=== PATIENT | female | born 1980 | race Caucasian/White ===

== ENCOUNTER 2016-09-27 07:34 | Emergency (ER) | payer OTHER ==
[2016-09-27] MEDS ORDERED: SODIUM CHLORIDE 0.9% 500 ML IV STA (08:26)
[2016-09-27] MEDS ORDERED: ONDANSETRON 4 MG/2 ML VIAL IVP STA (08:26)
[2016-09-27] MEDS ORDERED: SODIUM CHLORIDE 0.9% 1,000 ML IV STA ×2 (08:26)
[2016-09-27] MEDS ORDERED: FAMOTIDINE 20 MG/2 ML VIAL IV STA (08:26)
[2016-09-27] MEDS ORDERED: DICYCLOMINE 10 MG/ML 2 ML AMP IM STA (08:32)
--- NOTE | 2016-09-27 08:33 | ED ---
General Adult HPI - General Chief complaint: Nausea/Vomiting/Diarrhea Stated complaint: FLU SYMPTOMS, HEART RACING, JAW PAIN, VOMITING Time Seen by Provider: 09/27/16 08:08 Source: patient, RN notes reviewed Mode of arrival: ambulatory Limitations: no limitations - History of Present Illness Initial comments: Patient's 35-year-old female who presents emergency room today with a chief complaint of symptoms of nausea vomiting diarrhea over the last 4 days. Patient does admit to multiple episodes. Does admit to cramping pain in the abdomen. Patient does admit that she has small flakes of blood in the emesis. Patient does admit that she's currently on her menstrual cycle. She denies any signs of blood in the stool. She denies any other complaints or symptoms at this time. Patient denies any recent fever, chills, shortness of breath, chest pain, back pain, numbness or tingling, dysuria or hematuria, constipation, headaches or visual changes, or any other complaints. - Related Data Home Medications Medication Instructions Recorded Confirmed Ibuprofen [Motrin] 600 mg PO Q6HR PRN 09/27/16 09/27/16 Previous Rx's Medication Instructions Recorded Dicyclomine [Bentyl] 20 mg PO QID #20 tablet 09/27/16 Ondansetron Odt [Zofran ODT] 4 mg PO Q8HR PRN #20 tab 09/27/16 Allergies Allergy/AdvReac Type Severity Reaction Status Date / Time tramadol HCl [From Ultram] Allergy Swelling Verified 09/27/16 08:16 levofloxacin [From Levaquin] AdvReac Rapid Verified 09/27/16 08:16 Heart Rate Review of Systems ROS Statement: Those systems with pertinent positive or pertinent negative responses have been documented in the HPI. ROS Other: All systems not noted in ROS Statement are negative. Past Medical History Past Medical History: No Reported History History of Any Multi-Drug Resistant Organisms: None Reported Past Surgical History: Cholecystectomy Additional Past Surgical History / Comment(s): sinus surgery Past Psychological History: No Psychological Hx Reported Smoking Status: Current every day smoker Past Alcohol Use History: None Reported Past Drug Use History: None Reported General Exam - General Exam Comments Initial Comments: General: The patient is awake and alert, in no distress, and does not appear acutely ill. Eye: Pupils are equal, round and reactive to light, extra-ocular movements are intact. No nystagmus. There is normal conjunctiva bilaterally. No signs of icterus. Ears, nose, mouth and throat: There are moist mucous membranes and no oral lesions. Neck: The neck is supple, there is no tenderness or JVD. Cardiovascular: Tachycardic. No murmur, rub or gallop is appreciated. Respiratory: Lungs are clear to auscultation, respirations are non-labored, breath sounds are equal. No wheezes, stridor, rales, or rhonchi. Gastrointestinal: Soft, non-distended, non-tender abdomen without masses or organomegaly noted. There is no rebound or guarding present. No CVA tenderness. Bowel sounds are unremarkable. Musculoskeletal: Normal ROM, no tenderness. Strength 5/5. Sensation intact. Pulses equal bilaterally 2+. Neurological: A&O x 3. CN II-XII intact, There are no obvious motor or sensory deficits. Coordination appears grossly intact. Speech is normal. Skin: Skin is warm and dry and no rashes or lesions are noted. Psychiatric: Cooperative, appropriate mood & affect, normal judgment. Limitations: no limitations Course Vital Signs 09/27/16 07:53 Temperature 98.6 F Pulse Rate 144 H Respiratory 20 Rate Blood Pressure 118/86 O2 Sat by Pulse 98 Oximetry EKG Findings - EKG Comments: EKG Findings:: EKG performed at 0803: Shows sinus tachycardia 126 beats per minute. SC interval 124. QRS 64. QT/QTC 318/460. No acute ST changes. Medical Decision Making - Medical Decision Making Patient reexamined at this time shows no signs of distress. Patient's abdomen soft nontender. Patient's heart rate currently 100 bpm. Patient feeling better after medications. Patient's heart rate improved after fluids here in the emergency room. She admits she is feeling much better at this time is comfortable being discharged home. Her labs been reviewed blood work is unremarkable. Patient's urinalysis shows large amount of blood she is currently on her menstrual cycle. There is 24 white cells. This is felt to not be an infection at this time as patient is asymptomatic. Culture is pending. Patient will be discharged home with nausea medication and Bentyl for her symptoms. She is advised follow-up the family doctor. Advised return here to the emergency room if any symptoms increase or worsen or for any other concerns. Patient states understanding and is in agreement with this plan. - Lab Data Result diagrams: 09/27/16 08:29 09/27/16 08:29 Lab Results 09/27/16 09/27/16 09/27/16 Range/Units 08:29 08:29 08:29 WBC 10.5 (3.8-10.6) k/uL RBC 5.05 (3.80-5.40) m/uL Hgb 16.8 H (11.4-16.0) gm/dL Hct 51.7 H (34.0-46.0) % MCV 102.3 H (80.0-100.0) fL MCH 33.3 (25.0-35.0) pg MCHC 32.6 (31.0-37.0) g/dL RDW 13.2 (11.5-15.5) % Plt Count 249 (150-450) k/uL Neutrophils % 85 % Lymphocytes % 11 % Monocytes % 3 % Eosinophils % 0 % Basophils % 0 % Neutrophils # 8.9 H (1.3-7.7) k/uL Lymphocytes # 1.1 (1.0-4.8) k/uL Monocytes # 0.3 (0-1.0) k/uL Eosinophils # 0.0 (0-0.7) k/uL Basophils # 0.1 (0-0.2) k/uL Macrocytosis Slight PT (9.0-12.0) sec INR (<1.1) APTT (22.0-30.0) sec Sodium 145 (137-145) mmol/L Potassium 4.3 (3.5-5.1) mmol/L Chloride 107 (98-107) mmol/L Carbon Dioxide 23 (22-30) mmol/L Anion Gap 15 mmol/L BUN 15 (7-17) mg/dL Creatinine 0.58 (0.52-1.04) mg/dL Est GFR (MDRD) Af Amer >60 (>60 ml/min/1.73 sqM) Est GFR (MDRD) Non-Af >60 (>60 ml/min/1.73 sqM) Glucose 96 (74-99) mg/dL Calcium 10.0 (8.4-10.2) mg/dL Total Bilirubin 0.8 (0.2-1.3) mg/dL AST 32 (14-36) U/L ALT 46 (9-52) U/L Alkaline Phosphatase 89 (38-126) U/L Troponin I (0.000-0.034) ng/mL Total Protein 7.9 (6.3-8.2) g/dL Albumin 4.8 (3.5-5.0) g/dL Amylase 68 (30-110) U/L Lipase 51 (23-300) U/L Urine Color Urine Appearance (Clear) Urine pH (5.0-8.0) Ur Specific [place] (1.001-1.035) Urine Protein (Negative) Urine Glucose (UA) (Negative) Urine Ketones (Negative) Urine Blood (Negative) Urine Nitrite (Negative) Urine Bilirubin (Negative) Urine Urobilinogen (<2.0) mg/dL Ur Leukocyte Esterase (Negative) Urine RBC (0-5) /hpf Urine WBC (0-5) /hpf Ur Squamous Epith Cells (0-4) /hpf Urine Mucus (None) /hpf Urine HCG, Qual Not Detected (Not Detectd) 09/27/16 09/27/16 09/27/16 Range/Units 08:29 08:29 08:29 WBC (3.8-10.6) k/uL RBC (3.80-5.40) m/uL Hgb (11.4-16.0) gm/dL Hct (34.0-46.0) % MCV (80.0-100.0) fL MCH (25.0-35.0) pg MCHC (31.0-37.0) g/dL RDW (11.5-15.5) % Plt Count (150-450) k/uL Neutrophils % % Lymphocytes % % Monocytes % % Eosinophils % % Basophils % % Neutrophils # (1.3-7.7) k/uL Lymphocytes # (1.0-4.8) k/uL Monocytes # (0-1.0) k/uL Eosinophils # (0-0.7) k/uL Basophils # (0-0.2) k/uL Macrocytosis PT 10.6 (9.0-12.0) sec INR 1.1 (<1.1) APTT 25.0 (22.0-30.0) sec Sodium (137-145) mmol/L Potassium (3.5-5.1) mmol/L Chloride (98-107) mmol/L Carbon Dioxide (22-30) mmol/L Anion Gap mmol/L BUN (7-17) mg/dL Creatinine (0.52-1.04) mg/dL Est GFR (MDRD) Af Amer (>60 ml/min/1.73 sqM) Est GFR (MDRD) Non-Af (>60 ml/min/1.73 sqM) Glucose (74-99) mg/dL Calcium (8.4-10.2) mg/dL Total Bilirubin (0.2-1.3) mg/dL AST (14-36) U/L ALT (9-52) U/L Alkaline Phosphatase (38-126) U/L Troponin I <0.012 (0.000-0.034) ng/mL Total Protein (6.3-8.2) g/dL Albumin (3.5-5.0) g/dL Amylase (30-110) U/L Lipase (23-300) U/L Urine Color Light Red Urine Appearance Cloudy H (Clear) Urine pH 6.5 (5.0-8.0) Ur Specific [place] 1.018 (1.001-1.035) Urine Protein 2+ H (Negative) Urine Glucose (UA) Negative (Negative) Urine Ketones Trace H (Negative) Urine Blood Large H (Negative) Urine Nitrite Negative (Negative) Urine Bilirubin Negative (Negative) Urine Urobilinogen <2.0 (<2.0) mg/dL Ur Leukocyte Esterase Moderate H (Negative) Urine RBC >182 H (0-5) /hpf Urine WBC 24 H (0-5) /hpf Ur Squamous Epith Cells 9 H (0-4) /hpf Urine Mucus Many H (None) /hpf Urine HCG, Qual (Not Detectd) Disposition Clinical Impression: Nausea vomiting and diarrhea Disposition: HOME SELF-CARE Condition: Good Instructions: Gastroenteritis (ED) Additional Instructions: Please use medication as discussed. Please follow-up with family doctor in the next 2 days of symptoms have not improved. Please return to emergency room if the symptoms increase or worsen or for any other concerns. Prescriptions: Dicyclomine [Bentyl] 20 mg PO QID #20 tablet Ondansetron Odt [Zofran ODT] 4 mg PO Q8HR PRN #20 tab PRN Reason: Nausea Time of Disposition: 10:13
[2016-09-27 08:43] LABS: Basophils # (A) 0.1 k/uL (0-0.2); Basophils % (A) 0 %; CH 34.4; CHCM 33.8; Eosinophils % (A) 0 %; HCT 51.7 % (34.0-46.0); HGB 16.8 gm/dL (11.4-16.0); Luc # (Auto) 0.09; Luc % (Auto) 1; Lymphocytes # (A) 1.1 k/uL (1.0-4.8); Lymphocytes % (A) 11 %; MCH 33.3 pg (25.0-35.0); MCHC 32.6 g/dL (31.0-37.0); MCV 102.3 fL (80.0-100.0); Macrocytosis Slight; Mean Platelet Volume 7.2; Monocytes # (A) 0.3 k/uL (0-1.0); Monocytes % (A) 3 %; Neutrophils # (A) 8.9 k/uL (1.3-7.7); Neutrophils % (A) 85 %; RBC 5.05 m/uL (3.80-5.40); RDW 13.2 % (11.5-15.5); WBC 10.5 k/uL (3.8-10.6); WBC (Perox) 10.46
[2016-09-27 08:49] LABS: Appearance,Urine Cloudy (Clear); Bilirubin,Urine Negative (Negative); Glucose,Urine (UA) Negative (Negative); Ketones,Urine Trace (Negative); Leukocyte Esterase,Urine Moderate (Negative); Mucus,Urine Many /hpf; Nitrite,Urine Negative (Negative); PH, Urine 6.5 (5.0-8.0); Particle Count 16820; Protein,Urine 2+ (Negative); RBC,Urine >182 /hpf (0-5); Specific Gravity,Urine 1.018 (1.001-1.035); Squamous Epithelial Cell,Urine 9 /hpf (0-4); UA Billing (MACRO vs. MICRO) MICRO; Urobilinogen,Urine <2.0 mg/dL (<2.0); WBC,Urine 24 /hpf (0-5)
[2016-09-27 08:54] LABS: INR 1.1 (<1.1); Prothrombin Time 10.6 sec (9.0-12.0)
[2016-09-27 08:55] LABS: ALT 46 U/L (9-52); AST 32 U/L (14-36); Alkaline Phosphatase 89 U/L (38-126); Amylase 68 U/L (30-110); Anion Gap 15 mmol/L; Blood Urea Nitrogen 15 mg/dL (7-17); Carbon Dioxide 23 mmol/L (22-30); Chloride 107 mmol/L (98-107); Glucose 96 mg/dL (74-99); Non-African American GFR(MDRD) >60 (>60 ml/min/1.73 sqM); Potassium 4.3 mmol/L (3.5-5.1); Sodium 145 mmol/L (137-145); Total Bilirubin 0.8 mg/dL (0.2-1.3); Total Protein 7.9 g/dL (6.3-8.2)
--- NOTE | 2016-09-27 10:00 | XR ---
EXAMINATION TYPE: XR KUB DATE OF EXAM: 09/27/2016 9:56 AM COMPARISON: NONE INDICATION: Pain TECHNIQUE: Single view abdomen upright view FINDINGS: There is a normal bowel gas pattern. Psoas margins are normal. No organomegaly is present. Post cholecystectomy clips are present. Right kidney may be somewhat malpositioned slightly lower faith n expected. IMPRESSION: 1. Unremarkable Abdomen
--- NOTE | 2016-09-27 10:01 | XR ---
EXAMINATION TYPE: XR chest 2V DATE OF EXAM: 09/27/2016 9:56 AM COMPARISON: 01/02/2014 INDICATION: Vomiting, flulike symptoms TECHNIQUE: Single frontal view of the chest is obtained. FINDINGS: The heart size is normal. The pulmonary vasculature is normal. The lungs are clear. IMPRESSION: 1. No acute pulmonary process.
[2016-09-27 10:16] VITALS: BP 108/68; PULSE 87; RESP 18; TEMP 98.2
== END 2016-09-27 10:31 | disposition home or self-care (01) ==
LOC: EC 07:34
DX: R11.2 Nausea with vomiting, unspecified (principal); R19.7 Diarrhea, unspecified; R00.0 Tachycardia, unspecified; R10.9 Unspecified abdominal pain; F17.200 Nicotine dependence, unspecified, uncomplicated; Z90.49 Acquired absence of other specified parts of digestive tract; Z88.1 Allergy status to other antibiotic agents; Z88.5 Allergy status to narcotic agent
CPT/HCPCS: 99284 ×2; 96374 ×2; 96375 ×2; 96361 ×3; 96372 ×2; 36415; 80053; 82150; 83690; 84484; 85025; 85610; 85730; 81001; 81025; 87086; 71020; 74000; J0500; J2405; 93005

== ENCOUNTER 2017-02-18 06:19 | Inpatient (IN) | payer MEDICAID, OTHER ==
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
[2017-02-18] MEDS ORDERED: NICOTINE 21MG/24HR PATCH TRANSDERM STA (12:20)
[2017-02-18] MEDS ORDERED: MAG HYDROX/AL HYDROX/SIMETH 30 ML CUP PO PRN (13:18)
[2017-02-18] MEDS ORDERED: MAGNESIUM HYDROXIDE 2,400 MG/10 ML CUP PO PRN (13:18)
[2017-02-18] MEDS ORDERED: PNEUMOCOCCAL VACC-PNEUMOVAX 23 25 MCG/0.5 ML VIAL IM ONE (14:11)
[2017-02-18] MEDS: IBUPROFEN 600 MG TAB PO PRN (15:30)
[2017-02-18] MEDS: LORazepam 1 MG TAB PO PRN ×2 (15:31→21:08)
[2017-02-18 17:22] LABS: Appearance,Urine Cloudy (Clear); Bacteria,Urine Few /hpf; Bilirubin,Urine Negative (Negative); Glucose,Urine (UA) Negative (Negative); Ketones,Urine Negative (Negative); Leukocyte Esterase,Urine Negative (Negative); Mucus,Urine Occasional /hpf; Nitrite,Urine Negative (Negative); PH, Urine 6.5 (5.0-8.0); Particle Count 7461; Protein,Urine Trace (Negative); RBC,Urine 1 /hpf (0-5); Specific Gravity,Urine 1.004 (1.001-1.035); Squamous Epithelial Cell,Urine 8 /hpf (0-4); UA Billing (MACRO vs. MICRO) MICRO; Urobilinogen,Urine <2.0 mg/dL (<2.0); WBC,Urine 3 /hpf (0-5)
[2017-02-18] MEDS: ACETAMINOPHEN TAB 325 MG TAB PO PRN (21:08)
[2017-02-19] MEDS: LORazepam 1 MG TAB PO PRN ×3 (06:13→21:08)
[2017-02-19] MEDS: IBUPROFEN 600 MG TAB PO PRN ×2 (06:13→21:08)
[2017-02-19] MEDS: NICOTINE 21MG/24HR PATCH TRANSDERM SCH (08:32)
[2017-02-19 09:30] LABS: Basophils % (A) 0 %; CHCM 35.5; Eosinophils # (A) 0.1 k/uL (0-0.7); Eosinophils % (A) 1 %; HCT 45.2 % (34.0-46.0); HDW 2.26; HGB 15.3 gm/dL (11.4-16.0); Luc # (Auto) 0.15; Luc % (Auto) 1; Lymphocytes # (A) 1.8 k/uL (1.0-4.8); Lymphocytes % (A) 13 %; MCH 33.4 pg (25.0-35.0); MCHC 33.7 g/dL (31.0-37.0); Mean Platelet Volume 8.2; Monocytes # (A) 0.5 k/uL (0-1.0); Monocytes % (A) 3 %; Neutrophils # (A) 11.6 k/uL (1.3-7.7); Neutrophils % (A) 82 %; RBC 4.57 m/uL (3.80-5.40); RDW 12.7 % (11.5-15.5); WBC 14.2 k/uL (3.8-10.6); WBC (Perox) 13.77
[2017-02-19 09:43] LABS: ALT 37 U/L (9-52); AST 21 U/L (14-36); Alkaline Phosphatase 93 U/L (38-126); Blood Urea Nitrogen 12 mg/dL (7-17); Calcium 9.7 mg/dL (8.4-10.2); Chloride 100 mmol/L (98-107); Glucose 92 mg/dL (74-99); Non-African American GFR(MDRD) >60 (>60 ml/min/1.73 sqM); Potassium 3.9 mmol/L (3.5-5.1); Sodium 137 mmol/L (137-145); Total Bilirubin 0.4 mg/dL (0.2-1.3); Total Protein 6.9 g/dL (6.3-8.2)
[2017-02-19 10:41] LABS: Anion Gap 15 mmol/L; Carbon Dioxide 22 mmol/L (22-30)
[2017-02-19] MEDS: ACETAMINOPHEN TAB 325 MG TAB PO PRN (13:32)
[2017-02-19 14:12] VITALS: BMI 20.5
[2017-02-19 17:13] LABS: Appearance,Urine Clear (Clear); Bilirubin,Urine Negative (Negative); Glucose,Urine (UA) Negative (Negative); Ketones,Urine Negative (Negative); Leukocyte Esterase,Urine Negative (Negative); Nitrite,Urine Negative (Negative); PH, Urine 6.5 (5.0-8.0); Protein,Urine Negative (Negative); Specific Gravity,Urine 1.008 (1.001-1.035); UA Billing (MACRO vs. MICRO) CHEM; Urobilinogen,Urine <2.0 mg/dL (<2.0)
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
[2017-02-20] MEDS: IBUPROFEN 600 MG TAB PO PRN (06:53)
[2017-02-20] MEDS: LORazepam 1 MG TAB PO PRN ×2 (06:53→13:36)
[2017-02-20 06:58] VITALS: BP 93/55; PULSE 84; RESP 16; TEMP 98.1
[2017-02-20] MEDS: NICOTINE 21MG/24HR PATCH TRANSDERM SCH (08:34)
[2017-02-20 10:19] LABS: Cholesterol 107 mg/dL (<200); HDL Cholesterol 46 mg/dL (40-60)
[2017-02-20 12:20] LABS: Hemoglobin A1C 4.8 % (4.2-6.1)
[2017-02-20] MEDS: ACETAMINOPHEN TAB 325 MG TAB PO PRN (13:36)
--- NOTE | 2017-02-20 14:01 | P.DS ---
Providers Date of admission: 02/18/17 13:02 Expected date of discharge: 02/20/17 Attending physician: Lamin Garcia, DO Consults: 02/18/17 13:18 Consult Physician Routine Consulting Provider: Fabien Johnson Consult Reason/Comments: H and P and medical management Do you want consulting provider notified?: Yes Primary care physician: Fabien Johnson - Discharge Diagnosis(es) (1) Major depressive disorder, recurrent severe without psychotic features Discharge Summary (02/20/2017): Patient was admitted after having suicidal thoughts as noted below due to marital conflict and upcoming divorce. During hospital course patient was compliant with medication therapy. She attended all group and recreation activities. She did not require emergency medication. Patient reports tolerating Seroquel XR well last night and had the "best sleep" she has had in many years. She reports sleeping all through the night with no awakenings. She states she felt mild drowsiness this morning that resolved after she got up and became active and she states it was significantly less impairing than OTC Tylenol PM when used for sleep. Patient is much brighter and vibrant today. She reports having a conversation with her that went well yesterday and hopes to reconcile their disagreements. At time of discharge, patient denies SI/ HI/AVH. contacted and per SW agreeable to plan for patient to discharge home. 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 H&P (02/19/2017): Patient is a 36-year-old female who presented to the emergency room with chief complaint of suicidal thoughts that started 4 days prior. Patient's plan to kill herself by drowning. The precipitating factor for this event as the patient is currently going through divorce and struggling with her soon-to- be ex-. Patient states that she does not want a divorce. Patient is vague on the reason for the divorce, but after prompting reports that her is upset with her because of her past drug history and difficulty struggling with addiction to opiates and benzodiazepines. Patient reports becoming sedated to go off struggling with difficulties during his sinus surgery to multiple different attempts to correct. This was confirmed by her reports that he and patient's family have seizures multiple interventions to try to get patient off was set drugs with little success. Patient reports a past history of trying multiple different antidepressants with no success. She reports feeling jittery or increased anxiety with various SSRIs and SNRIs. She denies any past suicide attempts or history of psychiatric hospitalizations. She denies access to firearms or stashes medication. After reviewed various treatment options, patient is agreeable to trial of Seroquel XR monotherapy. MENTAL STATUS EXAM Appearance: alert, well groomed, appears stated age, steady gait Behavior: no psychomotor agitation or psychomotor retardation, fair eye contact Attitude: cooperative Speech: normal rate, rhythm, fluency, articulation; and prosody; primary language: Irish Mood: brighter Affect: congruent, with mood , full range Thought processes: linear, organized Thought content: patient does not appear to be responding to internal stimuli; patient denies auditory and visual hallucinations, no delusions and is not exhibiting in overt signs of psychosis, denies SI/HI Insight: fair Judgment: good Cognitive: oriented to all 4 spheres, normal intelligence Strengths/Weakness: family support/low self esteem Vital Signs Temp 98.1 F 02/20/17 06:57 Pulse 84 02/20/17 06:57 Resp 16 02/20/17 06:57 BP 93/55 02/20/17 06:57 Pulse Ox 99 02/18/17 13:24 Intake & Output 02/19/17 02/20/17 02/20/17 18:59 06:59 18:59 Weight 57.606 kg Laboratory Results WBC 14.2 k/uL (3.8-10.6) H 02/19/17 08:41 RBC 4.57 m/uL (3.80-5.40) 02/19/17 08:41 Hgb 15.3 gm/dL (11.4-16.0) 02/19/17 08:41 Hct 45.2 % (34.0-46.0) 02/19/17 08:41 MCV 99.0 fL (80.0-100.0) 02/19/17 08:41 MCH 33.4 pg (25.0-35.0) 02/19/17 08:41 MCHC 33.7 g/dL (31.0-37.0) 02/19/17 08:41 RDW 12.7 % (11.5-15.5) 02/19/17 08:41 Plt Count 234 k/uL (150-450) 02/19/17 08:41 Neutrophils % 82 % 02/19/17 08:41 Lymphocytes % 13 % 02/19/17 08:41 Monocytes % 3 % 02/19/17 08:41 Eosinophils % 1 % 02/19/17 08:41 Basophils % 0 % 02/19/17 08:41 Neutrophils # 11.6 k/uL (1.3-7.7) H 02/19/17 08:41 Lymphocytes # 1.8 k/uL (1.0-4.8) 02/19/17 08:41 Monocytes # 0.5 k/uL (0-1.0) 02/19/17 08:41 Eosinophils # 0.1 k/uL (0-0.7) 02/19/17 08:41 Basophils # 0.0 k/uL (0-0.2) 02/19/17 08:41 Sodium 137 mmol/L (137-145) 02/19/17 08:41 Potassium 3.9 mmol/L (3.5-5.1) 02/19/17 08:41 Chloride 100 mmol/L (98-107) 02/19/17 08:41 Carbon Dioxide 22 mmol/L (22-30) 02/19/17 08:41 Anion Gap 15 mmol/L 02/19/17 08:41 BUN 12 mg/dL (7-17) 02/19/17 08:41 Creatinine 0.72 mg/dL (0.52-1.04) 02/19/17 08:41 Est GFR (MDRD) Af Amer >60 (>60 ml/min/1.73 sqM) 02/19/17 08:41 Est GFR (MDRD) Non-Af >60 (>60 ml/min/1.73 sqM) 02/19/17 08:41 Glucose 92 mg/dL (74-99) 02/19/17 08:41 Calcium 9.7 mg/dL (8.4-10.2) 02/19/17 08:41 Total Bilirubin 0.4 mg/dL (0.2-1.3) 02/19/17 08:41 AST 21 U/L (14-36) 02/19/17 08:41 ALT 37 U/L (9-52) 02/19/17 08:41 Alkaline Phosphatase 93 U/L (38-126) 02/19/17 08:41 Total Protein 6.9 g/dL (6.3-8.2) 02/19/17 08:41 Albumin 4.3 g/dL (3.5-5.0) 02/19/17 08:41 Triglycerides 122 mg/dL (<150) 02/19/17 08:41 Cholesterol 107 mg/dL (<200) 02/19/17 08:41 LDL Cholesterol, Calc 37 mg/dL (0-99) 02/19/17 08:41 HDL Cholesterol 46 mg/dL (40-60) 02/19/17 08:41 TSH 0.788 mIU/L (0.465-4.680) 02/19/17 08:41 Urine Color Yellow 02/19/17 17:07 Urine Appearance Clear (Clear) 02/19/17 17:07 Urine pH 6.5 (5.0-8.0) 02/19/17 17:07 Ur Specific Elliott 1.008 (1.001-1.035) 02/19/17 17:07 Urine Protein Negative (Negative) 02/19/17 17:07 Urine Glucose (UA) Negative (Negative) 02/19/17 17:07 Urine Ketones Negative (Negative) 02/19/17 17:07 Urine Blood Negative (Negative) 02/19/17 17:07 Urine Nitrite Negative (Negative) 02/19/17 17:07 Urine Bilirubin Negative (Negative) 02/19/17 17:07 Urine Urobilinogen <2.0 mg/dL (<2.0) 02/19/17 17:07 Ur Leukocyte Esterase Negative (Negative) 02/19/17 17:07 Urine RBC 1 /hpf (0-5) 02/18/17 17:00 Urine WBC 3 /hpf (0-5) 02/18/17 17:00 Ur Squamous Epith Cells 8 /hpf (0-4) H 02/18/17 17:00 Urine Bacteria Few /hpf (None) H 02/18/17 17:00 Hyaline Casts 2 /lpf (0-2) 02/18/17 17:00 Urine Mucus Occasional /hpf (None) H 02/18/17 17:00 Urine HCG, Qual Not Detected (Not Detectd) 02/18/17 17:00 Urine Opiates Screen Not Detected (NotDetected) 02/18/17 06:30 Ur Oxycodone Screen Not Detected (NotDetected) 02/18/17 06:30 Urine Methadone Screen Not Detected (NotDetected) 02/18/17 06:30 Ur Propoxyphene Screen Not Detected (NotDetected) 02/18/17 06:30 Ur Barbiturates Screen Not Detected (NotDetected) 02/18/17 06:30 U Tricyclic Antidepress Not Detected (NotDetected) 02/18/17 06:30 Ur Phencyclidine Scrn Not Detected (NotDetected) 02/18/17 06:30 Ur Amphetamines Screen Not Detected (NotDetected) 02/18/17 06:30 U Methamphetamines Scrn Not Detected (NotDetected) 02/18/17 06:30 U Benzodiazepines Scrn Detected (NotDetected) H 02/18/17 06:30 Urine Cocaine Screen Not Detected (NotDetected) 02/18/17 06:30 U Marijuana (THC) Screen Not Detected (NotDetected) 02/18/17 06:30 Current Visit: Yes Status: Acute Priority: High Patient Condition at Discharge: Fair Plan - Discharge Summary New Discharge Prescriptions: New QUEtiapine XR [SEROquel XR] 100 mg PO HS #28 tab.er.24h Continue ALPRAZolam [Xanax] 0.5 mg PO BID Discontinued Ibuprofen [Motrin] 600 mg PO BID Discharge Medication List ALPRAZolam [Xanax] 0.5 mg PO BID 02/18/17 [History] QUEtiapine XR [SEROquel XR] 100 mg PO HS #28 tab.er.24h 02/20/17 [Rx] Follow up Appointment(s)/Referral(s): Fabien Johnson MD [Primary Care Provider] - 1-2 days Discharge Disposition: HOME SELF-CARE
== END 2017-02-20 15:08 | disposition home or self-care (01) | DRG 885 ==
LOC: EC 06:19 → 3MHU 13:02
PROVIDERS: ADMIT Psychiatry & Neurology Psychiatry; ATTEND Psychiatry & Neurology Psychiatry
DX: F33.2 Major depressive disorder, recurrent severe without psychotic features (principal); F11.20 Opioid dependence, uncomplicated; R45.851 Suicidal ideations; F13.20 Sedative, hypnotic or anxiolytic dependence, uncomplicated; E86.0 Dehydration; F17.200 Nicotine dependence, unspecified, uncomplicated; F41.9 Anxiety disorder, unspecified; Z79.899 Other long term (current) drug therapy; Z88.1 Allergy status to other antibiotic agents; Z88.5 Allergy status to narcotic agent; Z63.5 Disruption of family by separation and divorce
CPT/HCPCS: 80053; 80061; 80306; 81001; 81003; 81025; 82075; 83036; 84443; 85025; 87086; 87491; 87591; 90732; 99285

== ENCOUNTER 2017-05-08 11:29 | Emergency (ER) | payer OTHER ==
[2017-05-08] MEDS ORDERED: RX INFO: IV CONTRAST WAS GIVEN 1 EACH MISC MISCELLANE PRN (11:37)
[2017-05-08] MEDS ORDERED: DIPH,PERTUS(ACELL)TETVAC-LF 0.5 ML VIAL IM ONE (11:37)
[2017-05-08] MEDS ORDERED: HYDROmorphone 0.5 MG/0.5 ML SYRINGE IVP STA (11:37)
[2017-05-08 11:40] VITALS: BP 126/74; PULSE 85; RESP 18; TEMP 98
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
[2017-05-08 11:49] LABS: Glucose,Whole Blood 80 mg/dL (75-99)
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
[2017-05-08 12:22] LABS: Prothrombin Time 10.5 sec (9.0-12.0)
[2017-05-08 12:26] LABS: ALT 127 U/L (9-52); AST 245 U/L (14-36); Alkaline Phosphatase 67 U/L (38-126); Amylase 62 U/L (30-110); Anion Gap 11 mmol/L; Basophils % (A) 0 %; Blood Urea Nitrogen 11 mg/dL (7-17); CH 33.6; Calcium 9.1 mg/dL (8.4-10.2); Carbon Dioxide 21 mmol/L (22-30); Chloride 110 mmol/L (98-107); Eosinophils # (A) 0.1 k/uL (0-0.7); Eosinophils % (A) 1 %; Glucose 83 mg/dL (74-99); HGB 15.4 gm/dL (11.4-16.0); Luc # (Auto) 0.16; Luc % (Auto) 2; Lymphocytes # (A) 2.1 k/uL (1.0-4.8); Lymphocytes % (A) 23 %; MCH 33.2 pg (25.0-35.0); MCHC 33.5 g/dL (31.0-37.0); MCV 99.3 fL (80.0-100.0); Mean Platelet Volume 7.2; Monocytes # (A) 0.5 k/uL (0-1.0); Monocytes % (A) 5 %; Neutrophils # (A) 6.5 k/uL (1.3-7.7); Neutrophils % (A) 69 %; Non-African American GFR(MDRD) >60 (>60 ml/min/1.73 sqM); RBC 4.63 m/uL (3.80-5.40); RDW 12.3 % (11.5-15.5); Sodium 142 mmol/L (137-145); Total Bilirubin 0.8 mg/dL (0.2-1.3); Total Protein 7.3 g/dL (6.3-8.2); WBC 9.3 k/uL (3.8-10.6); WBC (Perox) 9.37
[2017-05-08 12:44] LABS: Alcohol 184 mg/dL
[2017-05-08 12:45] LABS: Potassium 4.4 mmol/L (3.5-5.1)
[2017-05-08 12:46] LABS: Partial Thromboplastin Time 20.9 sec (22.0-30.0)
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
[2017-05-08] MEDS ORDERED: ceFAZolin 2,000 MG in DEXTROSE/WATER 1 50ML.BAG IVPB STA (13:25)
[2017-05-08 13:27] LABS: Appearance,Urine Clear (Clear); Bilirubin,Urine Negative (Negative); Glucose,Urine (UA) Negative (Negative); Ketones,Urine Negative (Negative); Leukocyte Esterase,Urine Negative (Negative); Mucus,Urine Rare /hpf; Nitrite,Urine Negative (Negative); Particle Count 745; Protein,Urine Negative (Negative); RBC,Urine <1 /hpf (0-5); Specific Gravity,Urine 1.007 (1.001-1.035); Squamous Epithelial Cell,Urine 1 /hpf (0-4); UA Billing (MACRO vs. MICRO) MICRO; Urobilinogen,Urine <2.0 mg/dL (<2.0); WBC,Urine <1 /hpf (0-5)
[2017-05-08] MEDS ORDERED: ETOMIDATE 2 MG/ML 10 ML VIAL IVP STA (13:27)
[2017-05-08] MEDS ORDERED: TRANEXAMIC ACID 1,000 MG in SODIUM CHLORIDE 0.9% 100 ML IV STA (13:28)
[2017-05-08] MEDS ORDERED: ceFAZolin IN SWFI 2 GM/20 ML SYRINGE IVP STA (13:29)
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
[2017-05-08] MEDS: KETAMINE 10 MG/ML 20 ML VIAL IV ONE ×2 (13:40→13:41)
--- NOTE | 2017-05-08 14:11 | XR ---
EXAMINATION TYPE: XR Hip Limited RT DATE OF EXAM: 05/08/2017 CLINICAL HISTORY: Right hip fracture and dislocation. TECHNIQUE: Single frontal view of the right hip is obtained after reduction. COMPARISON: Prior pelvic x-ray earlier today and CT chest abdomen and pelvis FINDINGS: There is successful reduction of posterior right hip dislocation as femoral head is now be tter seated. Curvilinear fracture fragment involving inferior medial femoral head is displaced from j oint space to slight inferior aspect. Ossific fragments along superior lateral aspect of acetabulum r emain present. New Yu catheter in lower pelvis emptying contrast filled bladder is seen. IMPRESSION: There is interval successful reduction of posterior right hip dislocation.
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
[2017-05-08 14:12] LABS: Troponin I 0.026 ng/mL (0.000-0.034)
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
--- NOTE | 2017-05-15 08:02 | CDI ---
Documentation Clarification OP Dear Rudi Hough Please do addendum to ED report for missing sedation stop time Thank you, Micah De Leon Radial Arm Saw Operator If you have any questions, please contact Quality Control Lab Tech at [phone] [facility]
== END 2017-05-08 14:05 | disposition other institution (70) ==
LOC: EC 11:29
DX: S82.831A Other fracture of upper and lower end of right fibula, initial encounter for closed fracture (principal); S92.101A Unspecified fracture of right talus, initial encounter for closed fracture; S73.004A Unspecified dislocation of right hip, initial encounter; S36.113A Laceration of liver, unspecified degree, initial encounter; S01.81XA Laceration without foreign body of other part of head, initial encounter; F17.200 Nicotine dependence, unspecified, uncomplicated; Z79.899 Other long term (current) drug therapy; Z88.1 Allergy status to other antibiotic agents; Z88.6 Allergy status to analgesic agent; Z23 Encounter for immunization; V89.2XXA Person injured in unspecified motor-vehicle accident, traffic, initial encounter; Y92.410 Unspecified street and highway as the place of occurrence of the external cause
CPT/HCPCS: 99291; 99292; 27250; 29515; 72170; 99156; 99157; 96374; 96375; 90471; 36415; 93005; 86900; 86901; 80053; 82150; 82550; 82553; 83605; 83690; 84484; 85025; 85610; 85730; 86850; 81001; 81025; 80306; 80320; 71010; 73501; 73590; 73562; 73610; 72125; 70450; 71260; 74177; 90715; J0690; Q9967; J1170

== ENCOUNTER → 2020-08-11 | Outpatient (CLI) | payer OTHER ==
--- NOTE | 2020-08-11 11:31 | US ---
EXAMINATION TYPE: Transabdominal DATE OF EXAM: 08/11/2020 10:58 AM COMPARISON: NONE CLINICAL HISTORY: R10.2 PELVIC PAIN,Z32.01,N91.2. Pt states cramping. Positive beta hCG test. EXAM PERFORMED: Transabdominal (TA) EXAM MEASUREMENTS: GESTATIONAL AGE / DATING Physician Established: (8 weeks/6 days) EDC: 03/17/2021 Dates by LMP: (8 weeks/6 days) EDC: 03/17/2021 Dates by First Scan: No prior Dates by Current Scan for: (9 weeks/1 days) EDC: 03/15/2021 MATERNAL ANATOMY Uterus: 8.1 x 6.6 x 7.8 cm Right Ovary: 3.6 x 2.4 x 2.4 cm Left Ovary: 1.9 x 1.6 x 2.2 cm Post CDS / Adnexa: wnl Presence of free fluid: No Presence of corpus luteal cyst: Right Ovary= 2.1 x 2.0 x 1.6 cm Presence of subchorionic bleed: Left of gestational sac= 1.5 x 1.5 x 1.6 cm GESTATION / SURVEY CRL: 2.4 cm (9 weeks/1 days) MSD: wnl Heart Rate: 168 bpm Rhythm: Normal IUP: Viable IUP Date of LMP: 06/10/2020 Single, viable IUP/ Small sub-chorionic bleed/ Possible fibroid posterior UT= 1.5 x 1.1 x 1.7 cm Attempted to call results to Dr's office at time of exam, no answer Single live intrauterine gestation as gestational sac and pole seen. Yolk sac not clearly ident ified or marked on images saved. No free fluid in pelvic cul-de-sac. Inferiorly there is small1.6 cm curvilinear fluid collection possible implantation bleed. Towards end of study technologist marked a 1.5 x 1.1 cm posterior superficial intramural or more likely subserosal small fibroid. Both ovaries identified. No suspicious extra ovarian adnexal mass. 2.1 cm peripheral cystic lesion wi th surrounding hypervascularity right ovary, this is thought to reflect corpus luteal cyst in right o vary. IMPRESSION: Single live intrauterine gestation, mean crown-rump length 2.4 cm corresponding to 9 week 1 day old fetus
== END ==
LOC: RADUSWWP 10:43
PROVIDERS: ATTEND Family Medicine
DX: O26.891 Other specified pregnancy related conditions, first trimester (principal); Z3A.09 9 weeks gestation of pregnancy
CPT/HCPCS: 76801

== ENCOUNTER 2021-02-15 06:04 | Inpatient (IN) | payer OTHER ==
[2021-02-07 15:43] VITALS: BMI 26.3
[2021-02-15] MEDS ORDERED: CITRIC ACID-SODIUM CITRATE 15 ML CUP PO ONE (06:13)
[2021-02-15] MEDS ORDERED: METHYLERGONOVINE 0.2 MG/ML 1 ML AMP ONE (06:21)
[2021-02-15] MEDS ORDERED: KETAMINE 10 MG/ML 20 ML VIAL ONE (06:21)
[2021-02-15] MEDS ORDERED: ALBUMIN HUMAN 5% (12.5gm) 250 ML BOTTLE IVPB ONE (06:21)
[2021-02-15] MEDS ORDERED: NEOSTIGMINE 1 MG/ML 10 ML VIAL ONE (06:21)
[2021-02-15] MEDS ORDERED: fentaNYL (PF) 50 MCG/ML 2 ML AMP ONE ×2 (06:21→07:56)
[2021-02-15] MEDS ORDERED: ETOMIDATE 2 MG/ML 10 ML VIAL ONE (06:21)
[2021-02-15] MEDS ORDERED: ROCURONIUM 10 MG/ML (5 ML VIAL) IV ONE (06:21)
[2021-02-15] MEDS ORDERED: GLYCOPYRROLATE 0.2 MG/ML 2 ML VIAL ONE (06:21)
[2021-02-15] MEDS ORDERED: SUCCINYLCHOLINE CHLORIDE 100 MG/5 ML SYR IV ONE (06:21)
[2021-02-15] MEDS ORDERED: PHENYLEPHRINE-0.9% NACL SYG 1,000 MCG/10 ML SYRINGE ONE (06:21)
[2021-02-15] MEDS ORDERED: LACTATED RINGERS 1,000 ML IV SCH (06:45)
[2021-02-15 06:58] LABS: Basophils % (A) 0 %; Eosinophils % (A) 0 %; HCT 39.4 % (34.0-46.0); HGB 13.9 gm/dL (11.4-16.0); Lymphocytes # (A) 2.1 k/uL (1.0-4.8); Lymphocytes % (A) 12 %; MCH 34.9 pg (25.0-35.0); MCHC 35.4 g/dL (31.0-37.0); MCV 98.7 fL (80.0-100.0); Mean Platelet Volume 9.2; Monocytes # (A) 0.7 k/uL (0-1.0); Monocytes % (A) 4 %; Neutrophils # (A) 13.9 k/uL (1.3-7.7); Neutrophils % (A) 82 %; Platelet Count 226 k/uL (150-450); RBC 3.99 m/uL (3.80-5.40); RDW 13.3 % (11.5-15.5)
[2021-02-15] MEDS ORDERED: MORPHINE SULFATE (PF) 0.3 MG/0.3 ML SYR ONE (07:56)
[2021-02-15] MEDS ORDERED: ONDANSETRON 4 MG/2 ML VIAL ONE (07:56)
[2021-02-15] MEDS ORDERED: NALBUPHINE 10 MG/ML (1 ML AMP) ONE (07:56)
[2021-02-15] MEDS ORDERED: OXYTOCIN 30 UNITS/500 ML NS BAG IV ONE (07:56)
[2021-02-15] MEDS ORDERED: KETOROLAC 15 MG/ML 1 ML VIAL ONE (07:56)
[2021-02-15] MEDS ORDERED: diphenhydrAMINE 50 MG/ML 1 ML VIAL IVP PRN ×2 (08:38)
[2021-02-15] MEDS ORDERED: diphenhydrAMINE 25 MG CAP PO PRN (08:38)
[2021-02-15] MEDS ORDERED: ZOLPIDEM 5 MG TAB PO PRN (08:38)
[2021-02-15] MEDS ORDERED: diphenhydrAMINE 50 MG CAP PO PRN (08:38)
[2021-02-15] MEDS ORDERED: NALOXONE 0.4 MG/ML 1 ML VIAL IV PRN (08:38)
[2021-02-15] MEDS ORDERED: ONDANSETRON 4 MG/2 ML VIAL IVP PRN (08:38)
[2021-02-15] MEDS ORDERED: METOCLOPRAMIDE 5 MG/ML 2 ML VIAL IVP PRN (08:38)
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
--- NOTE | 2021-02-15 08:46 | P.OP ---
Date of Procedure: 02/15/21 Preoperative Diagnosis: Intrauterine at 36 weeks: Complete placenta previa: Advanced trauma age: Family planning Postoperative Diagnosis: Same with possible mild accreta Procedure(s) Performed: Primary low-transverse section Anesthesia: spinal Surgeon: Hayes Nunez Legal Stenographer #1: Jennifer Guillen Estimated Blood Loss (ml): 700 IV fluids (ml): 1,100 Urine output (ml): 200 Pathology: other (Placenta) Condition: stable Disposition: floor Operative Findings: Female scores of 8 and 8 at one and 5 minutes respectively weight was 5 lbs. 2 oz. Removal of the placenta it was noted to be complete previa as well in the pericervical region there was significant adhesion of the placenta to the uterine/Lorcet uterine segment Description of Procedure: Patient was taken to the operative suite where a spinal anesthetic was found be adequate. She was prepped and draped in the normal sterile fashion and placed in the dorsal supine position with leftward tilt. Initially a Pfannenstiel skin incision was made and this incision was then carried through to underlying layer of the fascia was second knife. Fascia was then nicked in the midline and this opening was extended laterally with Haley scissors. Superior and inferior aspect of this incision were then grasped tented up and bluntly and sharply dissected off the rectus muscles. Rectus muscles were then divided midline and blunt dissection through the peritoneum was performed. This opening was then extended superiorly and inferiorly with good visualization of both bowel bladder. Bladder blade was then placed in the bladder flap identified. It was entered with metastases scissors carried across face uterus and then bluntly dissected out of the operative field. Knife was then used to incise the uterus and the upper portion of the lower uterine segment to try and avoid the placenta previa. On entry the incision was fully developed with hemostat and then extended bluntly. Head was then atraumatically delivered mouth nares bulb suctioned and the anterior posterior shoulders easily delivered. Nursery personnel was present and assumed care. Umbilical cords clamped cut usual fashion. Placenta was then delivered predominantly intact, however in the lower uterine segment there was significant adhesion of the placental parts and membranes to the lower uterine segment some dissection to remove the fragments was done once these were removed and was felt to be completely excised. Once this was completed 0 Vicryl suture was used to reapproximate the incision in running fashion in 2 layers. Once excellent hemostasis was obtained blood and debris was suctioned the posterior cul-de-sac and fallopian tubes had. Prescription applied 2 cm from uterine cornu. Uterus was then reinspected no bleeding is noted from the incision line therefore was reinserted the abdomen and the peritoneal layer was identified and marked with hemostats and closed with 3-0 Vicryl. Once this was completed fascial layer was closed with 0 Vicryl suture. One layer of 3-0 Vicryl was placed in deep subcuticular tissues three-part Thompson skin and close space. Skin was then closed with 3-0 Vicryl subcuticular. Sponge, lap, needle counts all correct 2. Patient was then taken to the recovery room in stable and satisfactory condition.
[2021-02-15] MEDS ORDERED: BUTORPHANOL 1 MG/ML 1 ML VIAL IV PRN (09:49)
[2021-02-15 11:34] LABS: Basophils % (A) 0 %; Eosinophils # (A) 0.1 k/uL (0-0.7); Eosinophils % (A) 0 %; HCT 21.2 % (34.0-46.0); Lymphocytes # (A) 2.8 k/uL (1.0-4.8); Lymphocytes % (A) 12 %; MCH 34.8 pg (25.0-35.0); MCHC 35.1 g/dL (31.0-37.0); MCV 99.1 fL (80.0-100.0); Mean Platelet Volume 9.5; Monocytes # (A) 0.7 k/uL (0-1.0); Monocytes % (A) 3 %; Neutrophils # (A) 18.3 k/uL (1.3-7.7); Neutrophils % (A) 83 %; Platelet Count 208 k/uL (150-450); RBC 2.14 m/uL (3.80-5.40); RDW 13.5 % (11.5-15.5); WBC 22.2 k/uL (3.8-10.6)
[2021-02-15 11:39] LABS: HGB 7.5 gm/dL (11.4-16.0)
[2021-02-15 11:44] LABS: Partial Thromboplastin Time 23.2 sec (22.0-30.0); Prothrombin Time 10.6 sec (9.0-12.0)
--- NOTE | 2021-02-15 12:48 | XR ---
EXAMINATION TYPE: XR abdomen 1V DATE OF EXAM: 02/15/2021 COMPARISON: NONE HISTORY: Instrument count post surgery. TECHNIQUE: Single supine KUB image of the abdomen is obtained FINDINGS: Small bowel demonstrates no evidence for dilatation or air fluid levels. Gas and fecal material is seen in non-distended colon. No convincing evidence for pneumoperitoneum. No unusual calcifications. The lung bases are clear. Postoperative changes right hip. Overlying skin lynn. No radiopaque foreign body seen. IMPRESSION: 1. No radiopaque foreign body seen.
--- NOTE | 2021-02-15 12:51 | P.OP ---
Date of Procedure: 02/15/21 Preoperative Diagnosis: Was hemorrhage suspect damage from placenta previa Postoperative Diagnosis: Same Procedure(s) Performed: Exam under anesthesia converted to a total abdominal hysterectomy Anesthesia: ADITYA Surgeon: Hayes Nunez Metal Dealer #1: Jennifer Guillen Estimated Blood Loss (ml): 170 IV fluids (ml): 1,800 (1000 lactated Ringer's, 250 of albumin, 590 mL packed red blood cells) Pathology: other (Uterus and cervix) Condition: stable Disposition: floor Operative Findings: Pathology pending. Incision line and remainder of uterus grossly normal. Somewhat boggy but not completely atonic Description of Procedure: I was called to evaluate Elizabeth following surgery and with noted tachycardia and starting to feel hot and lightheaded I came in immediately evaluated her. Vital signs were otherwise stable with a blood pressure in the 90s over 50s which is only slightly decreased from 111/60 which she had on immediate postop period she had been complaining of feeling hot and struggling a little bit even intraoperatively so it made it more challenging from a diagnostic standpoint. I did do a exam at bedside and her cervix was closed but I was able to dilate it with a sterile glove and some clot was extruded but it was difficult to fully evaluate the area and with continued bleeding and what felt like her uterus was firm decision to move to the operative room for exam under anesthesia was made risks and benefits did include possible hysterectomy due to the fact that I wasn't certain that there was some issue from her placenta previa that was causing some of the bleeding issues that she was having at this time. In the operating room she was placed in dorsal lithotomy position with appropriate anesthetic and I initially put a weighted speculum in and looked in the vagina there was definitely some blood coming from the cervical os I was able to place one or 2 fingers into the cervical os and remove clots that were sitting behind it. This initially helped bleeding a little bit but we were still noting bleeding. We did give a dose of Methergine as precaution that potentially her uterus was just not firming down even though felt very firm on bimanual exam. We did to gentle uterine curettings to see if there was something in the cervical area or below that was causing the bleeding the cervix itself was very atonic and floppy. Ultimately we were monitoring the bleeding which at that time was scant and suddenly she began having heavy bright red blood flow from the vagina and a decision to convert to a hysterectomy was made. I did go and speak to bring that linoleum layer helper and reapproximated her to oversewing the vaginal cuff. Once this was completed and excellent hemostasis was felt to be obtained pelvis was irrigated and approximately 5 minutes was spent allowing observation of the area to make sure there was no further bleeding. At this point incidents removed bowel packing was removed. Peritoneal layer was 0 Vicryl placed in deep subcuticular tissues reapproximate the skin and close space. Skin was then closed with lynn. Once this was completed we repositioned her into dorsal lithotomy position and we could look from below to make sure there was no further bleeding as I cannot be completely certain that the cervix was completely excised. No bleeding is noted however there was some separation of the vaginal layer and therefore that was closed with 0 Vicryl suture in a running locking fashion. Excellent hemostasis is noted at this point that said the vagina was packed with gauze. Patient responded well to blood products given intraoperatively blood pressure stabilized and pulse came from 120s to 130s into the 80s to 90s. She did receive the second unit of blood products in the operating room as the intraoperative CBC revealed hemoglobin of 7.5 which is almost certainly still above what the actual hemoglobin was. Other labs were ordered to verify stability of PTT, PT-INR and fibrinogen which were all normal. She was taken to the recovery room following an x-ray to verify accurate instrument count with the instrument count being not done preoperatively as this was a true emergency trying to get the uterus out. Lap counts were all correct and the x-rays were negative. Patient was then taken to the recovery room in stable and satisfactory condition.
[2021-02-15] MEDS: LACTATED RINGERS 1,000 ML IV SCH ×2 (13:46→23:39)
[2021-02-15] MEDS: KETOROLAC 15 MG/ML 1 ML VIAL IVP SCH ×2 (16:14→23:40)
[2021-02-15] MEDS: metroNIDAZOLE-NS PMX 500 MG in SALINE 1 100ML.BAG IVPB SCH (16:20)
[2021-02-15] MEDS: ACETAMINOPHEN TAB 500 MG TAB PO SCH ×2 (16:29→20:54)
[2021-02-15 19:03] LABS: Basophils % (A) 0 %; Eosinophils % (A) 0 %; HCT 29.7 % (34.0-46.0); Hypochromasia Slight; Lymphocytes # (A) 1.8 k/uL (1.0-4.8); Lymphocytes % (A) 8 %; MCH 33.8 pg (25.0-35.0); MCHC 33.2 g/dL (31.0-37.0); MCV 101.9 fL (80.0-100.0); Macrocytosis Slight; Mean Platelet Volume 8.5; Monocytes # (A) 0.8 k/uL (0-1.0); Monocytes % (A) 3 %; Neutrophils # (A) 19.5 k/uL (1.3-7.7); Neutrophils % (A) 86 %; Platelet Count 153 k/uL (150-450); RBC 2.91 m/uL (3.80-5.40); RDW 15.7 % (11.5-15.5); WBC 22.7 k/uL (3.8-10.6)
[2021-02-15 19:07] LABS: HGB 9.8 gm/dL (11.4-16.0)
[2021-02-15] MEDS: SENNOSIDES-DOCUSATE SODIUM 1 EACH TAB PO SCH (20:55)
[2021-02-16] MEDS: metroNIDAZOLE-NS PMX 500 MG in SALINE 1 100ML.BAG IVPB SCH ×2 (00:33→10:23)
[2021-02-16] MEDS: LACTATED RINGERS 1,000 ML IV SCH ×4 (02:39→17:56)
[2021-02-16] MEDS: ACETAMINOPHEN TAB 500 MG TAB PO SCH ×4 (03:23→22:18)
[2021-02-16] MEDS: KETOROLAC 15 MG/ML 1 ML VIAL IVP SCH ×3 (06:04→22:22)
[2021-02-16 06:33] LABS: Basophils % (A) 0 %; Eosinophils % (A) 0 %; HCT 21.7 % (34.0-46.0); Lymphocytes # (A) 1.2 k/uL (1.0-4.8); Lymphocytes % (A) 8 %; MCH 33.6 pg (25.0-35.0); MCHC 35.4 g/dL (31.0-37.0); Mean Platelet Volume 9.4; Monocytes # (A) 0.4 k/uL (0-1.0); Monocytes % (A) 3 %; Neutrophils # (A) 13.4 k/uL (1.3-7.7); Neutrophils % (A) 89 %; Platelet Count 143 k/uL (150-450); RBC 2.28 m/uL (3.80-5.40); RDW 15.7 % (11.5-15.5); WBC 15.2 k/uL (3.8-10.6)
[2021-02-16 06:47] LABS: HGB 7.7 gm/dL (11.4-16.0)
[2021-02-16 08:11] VITALS: RESP 16
--- NOTE | 2021-02-16 09:27 | P.PN ---
Progress Note - Text Progress Note Date: 02/16/21 Elizabeth is seen and evaluated this morning. Her main complaint was pain. Review of the labs from yesterday and this morning show a hemoglobin 9.8 last night it 6 PM and Humalog 7.7 this morning. It seems very unlikely that the hemoglobin 9.8 was an accurate hemoglobin as she was 7.5 intraoperatively following her blood continued to have bleeding and then received a second unit of blood which is not enough to of stimulated her hemoglobin to 9.8. It would've seem much more likely that her actual hemoglobin at that time was exchanged range and not 7.5 therefore struggled to believe that 9.8 hemoglobin was accurate number. Her vital signs however remained stable she is not tachycardic and her blood pressures are 100-110 over 60s. She voices no other complaints of lightheadedness or signs or symptoms of hypovolemia she is able to ambulate and she is been taking care of her baby without difficulty she was sitting up in bed this morning and her only real complaint again was that she had incisional/abdominal pain. We have initiated oral pain medication and she seems to be tolerating that well. We'll continue very close observational care and continue antibiotics likely through today and discontinue them later today. All other questions are answered for her at this time. On physical exam again vital signs are stable and she is afebrile. Heart was regular, lungs were clear and abdomen is otherwise soft with incisional tenderness. We'll plan to remove the dressing later today. Yu cath reveals clear yellow urine and was removed with vaginal packing which showed scant blood. Her extremities are without pain and have only marginal edema from surgery yesterday. Assessment postop day 1 from a section followed by a total abdominal hysterectomy. Acute blood loss anemia with blood product replacement. Plan continue care and close observation at this time.
--- NOTE | 2021-02-16 09:50 | P.PN ---
Progress Note - Text Progress Note Date: 02/16/21 (404) Anesthesia Postop day 1 Subjective: Status Post section with Duramorph. Patient seen and examined. Doing well without complaint. VAS 6 out of 10. Better with breakthrough medication. No nausea vomiting or pruritus. L signs stable. Gross lower extremity strength intact. . Without apparent anesthetic complications. Objective: Vital signs reviewed Heart: Regular Rate Lungs: Good chest excursion Abdomen: Appears nondistended Assessment: Status post with Duramorph postop day 1 Plan: Continue current care with your medical management.
[2021-02-16] MEDS: SENNOSIDES-DOCUSATE SODIUM 1 EACH TAB PO SCH ×2 (10:23→18:00)
[2021-02-16] MEDS: metroNIDAZOLE 500 MG TAB PO SCH ×2 (11:05→21:08)
[2021-02-16] MEDS: IBUPROFEN 600 MG TAB PO PRN ×2 (13:26→20:11)
[2021-02-16] MEDS: CEPHALEXIN 500 MG CAP PO SCH ×2 (16:13→23:59)
--- NOTE | 2021-02-16 17:42 | P.PN ---
Progress Note - Text Progress Note Date: 02/16/21 Elizabeth is seen and evaluated again this afternoon. Her vital signs remained stable and she is afebrile. She is up ambulating and she didn't shower. Her incision is clean dry and intact. She does still complain of incisional abdominal pain that is significant at times. We reviewed with her and some of the family members the events that transpired yesterday and tried to have a discussion on both pain control and some dietary issues that she and her family are having with Gabriele in general. I did explain what happened yesterday in detail to her satisfaction. We discussed changing the pain management from her current regimen to [place] 10 mg every 6 hours but she would prefer to maintain the current regimen of Motrin, Tylenol and oxycodone every intermittently and then every 4 hours with the oxycodone. We also discussed her tobacco use and have offered and/or ordering a nicotine patch for her as she had plan to quit smoking anyway and she had excellent brought nicotine patches from home which I explained we really should have her take or use the once from the hospital I did offer to have pharmacy ID the medicine if she really wanted to use her own. But regardless we'll initiate nicotine patch therapy to help counteract the nicotine withdrawal. We'll plan to repeat the CBC in the morning and unless there is a dramatic change or she has changes in her vital signs likely will not dictate what we do. I did discuss with her potentially giving her another unit of blood as she relates she is still feeling kind of weak and tired but she is not symptomatic like she was yesterday and she declines another transfusion as we require her to have the IV restarted. All the questions are answered for she and her family at this time and will plan to continue current care. From a physical exam standpoint again vital signs are stable she is afebrile. Heart regular and lungs are clear. Abdomen is soft and she does have L sounds. She has not passed flatus but really has not been up and around very much in the last day.
[2021-02-16] MEDS ORDERED: NICOTINE 21MG/24HR PATCH TRANSDERM SCH (17:45)
[2021-02-16] MEDS: NICOTINE 21MG/24HR PATCH TRANSDERM SCH (18:00)
[2021-02-17] MEDS: ACETAMINOPHEN TAB 500 MG TAB PO SCH ×4 (02:16→18:29)
[2021-02-17] MEDS: KETOROLAC 15 MG/ML 1 ML VIAL IVP SCH (02:16)
[2021-02-17] MEDS: LACTATED RINGERS 1,000 ML IV SCH (02:16)
[2021-02-17] MEDS: IBUPROFEN 600 MG TAB PO PRN ×3 (02:37→16:25)
[2021-02-17 07:04] LABS: Basophils % (A) 0 %; Eosinophils % (A) 0 %; Lymphocytes # (A) 1.4 k/uL (1.0-4.8); Lymphocytes % (A) 11 %; MCH 33.5 pg (25.0-35.0); MCHC 35.5 g/dL (31.0-37.0); MCV 94.1 fL (80.0-100.0); Mean Platelet Volume 9.3; Monocytes # (A) 0.4 k/uL (0-1.0); Monocytes % (A) 3 %; Neutrophils % (A) 84 %; Platelet Count 166 k/uL (150-450); RBC 2.07 m/uL (3.80-5.40); RDW 15.5 % (11.5-15.5)
[2021-02-17 07:24] LABS: HCT 19.5 % (34.0-46.0); HGB 6.9 gm/dL (11.4-16.0)
--- NOTE | 2021-02-17 08:36 | P.PN ---
Progress Note - Text Progress Note Date: 02/17/21 Elizabeth is seen and evaluated postop day 2. It is noted that her hemoglobin is down to 6.8 from 7.7 yesterday. However, she shows no signs or symptoms of active bleeding and her vital signs are stable with blood pressures in the 120s over 70s and heart rate of 86. She voices no other signs or symptoms of hypovolemia no headache no shortness of breath no chest pain no diaphoresis she feels very well she is up moving around taking care for baby voiding without difficulty she has excellent bowel sounds and feels like she is concerned passing flatus and although we did again discuss another unit of blood which will likely help her feel better she does not want to have another IV placed and does not want the blood at this time. Can readdress her request and this later on but at this time she is not strictly need another transfusion based on her current physical exam. All the questions were answered for her at this time. We'll plan to continue care for now with expectation for discharge over the weekend with continued improvement. All the questions are answered for her and she is again stable at this time. He is encouraged to continue wearing the SCDs one in bed.
[2021-02-17] MEDS: SENNOSIDES-DOCUSATE SODIUM 1 EACH TAB PO SCH ×2 (09:02→20:19)
[2021-02-17] MEDS: CEPHALEXIN 500 MG CAP PO SCH ×3 (09:02→22:45)
[2021-02-17] MEDS: metroNIDAZOLE 500 MG TAB PO SCH ×2 (09:26→20:19)
[2021-02-17] MEDS: NICOTINE 21MG/24HR PATCH TRANSDERM SCH (18:29)
[2021-02-18] MEDS: ACETAMINOPHEN TAB 500 MG TAB PO SCH ×2 (00:22→06:48)
[2021-02-18] MEDS: IBUPROFEN 600 MG TAB PO PRN (05:00)
[2021-02-18 05:02] VITALS: TEMP 98.3
[2021-02-18 08:29] VITALS: BP 119/75; PULSE 92
[2021-02-18] MEDS: metroNIDAZOLE 500 MG TAB PO SCH (09:16)
[2021-02-18] MEDS: CEPHALEXIN 500 MG CAP PO SCH (09:16)
[2021-02-18] MEDS: SENNOSIDES-DOCUSATE SODIUM 1 EACH TAB PO SCH (09:25)
--- NOTE | 2021-02-18 09:33 | P.DS ---
Providers Date of admission: 02/15/21 06:04 Expected date of discharge: 02/18/21 Attending physician: Hayes Nunez Primary care physician: Stated None Hospital Course: Elizabeth is doing very well this morning. She is involuting, voiding tolerating her diet. Her vital signs remained stable and she is afebrile. She voices no complaints this time. She is requesting discharge home today. We'll plan discharged home today with follow-up in 1 week. Prescription for [place] and Motrin, as well as iron have been forwarded to the pharmacy. She denies any signs or symptoms of hypovolemia and has been ambulating well and taking care of her baby very well over the last 24-48 hours. On physical exam heart regular, lungs clear, extremities without pain. Abdomen soft and her incision is clean dry and intact. L sounds are noted. She is pass ing flatus. We'll plan to remove lynn today. Assessment postop day 3. Plan discharged home follow up with me in 1 week. Discharge instructions were thoroughly reviewed and all questions are answered for her prior to her discharge. Patient Condition at Discharge: Good Plan - Discharge Summary Discharge Rx Participant: No New Discharge Prescriptions: New Ibuprofen [Motrin] 600 mg PO Q6HR PRN #30 tab PRN Reason: Pain HYDROcodone/APAP 5-325MG [[place] 5-325] 1 tab PO Q4HR PRN #30 tab PRN Reason: Pain Ferrous Sulfate [Feosol] 325 mg PO DAILY #30 tab No Action Aspirin 81 mg PO DAILY Pnv No.95/Ferrous Fum/Folic AC [ Multivitamin Tablet] 1 each PO DAILY Discharge Medication List Aspirin 81 mg PO DAILY 02/07/21 [History] Pnv No.95/Ferrous Fum/Folic AC [ Multivitamin Tablet] 1 each PO DAILY 02/07/21 [History] Ferrous Sulfate [Feosol] 325 mg PO DAILY #30 tab 02/18/21 [Rx] HYDROcodone/APAP 5-325MG [[place] 5-325] 1 tab PO Q4HR PRN #30 tab 02/18/21 [Rx] Ibuprofen [Motrin] 600 mg PO Q6HR PRN #30 tab 02/18/21 [Rx] Follow up Appointment(s)/Referral(s): Hayes Nunez DO [Doctor of Osteopathic Medicine] - 03/29/21 11:00 am (First follow up set for SaturdayFebruary 24 @ 1:30pm) Activity/Diet/Wound Care/Special Instructions: No heavy lifting, limit stairs and driving, and pelvic rest. If any high temperatures, heavy bleeding, severe pain or any lightheadedness or signs or symptoms of hypovolemia notify our office immediately.
== END 2021-02-18 11:35 | disposition home or self-care (01) | DRG 783 ==
LOC: 4FBP 06:04
PROVIDERS: ADMIT Obstetrics & Gynecology; ATTEND Obstetrics & Gynecology
PROC: 0UT74ZZ Resection of Bilateral Fallopian Tubes, Percutaneous Endoscopic Approach (ICD-10-PCS; 2021-02-15)
PROC: 0UT94ZZ Resection of Uterus, Percutaneous Endoscopic Approach (ICD-10-PCS; 2021-02-15)
PROC: 0UT24ZZ Resection of Bilateral Ovaries, Percutaneous Endoscopic Approach (ICD-10-PCS; 2021-02-15)
PROC: 0DNW4ZZ Release Peritoneum, Percutaneous Endoscopic Approach (ICD-10-PCS; 2021-02-15)
PROC: 10D00Z1 Extraction of Products of Conception, Low, Open Approach (ICD-10-PCS; principal; 2021-02-15 08:00)
PROC: 30233N1 Transfusion of Nonautologous Red Blood Cells into Peripheral Vein, Percutaneous Approach (ICD-10-PCS; 2021-02-16)
DX: O44.03 Complete placenta previa NOS or without hemorrhage, third trimester (principal); O60.14X0 Preterm labor third trimester with preterm delivery third trimester, not applicable or unspecified; D62 Acute posthemorrhagic anemia; Z3A.36 36 weeks gestation of pregnancy; O99.892 Other specified diseases and conditions complicating childbirth; N73.6 Female pelvic peritoneal adhesions (postinfective); F17.210 Nicotine dependence, cigarettes, uncomplicated; Z88.5 Allergy status to narcotic agent; F32.9 Major depressive disorder, single episode, unspecified; O99.343 Other mental disorders complicating pregnancy, third trimester; O90.81 Anemia of the puerperium; O99.334 Smoking (tobacco) complicating childbirth; Z37.0 Single live birth; Z88.1 Allergy status to other antibiotic agents; Z53.31 Laparoscopic surgical procedure converted to open procedure; Z87.410 Personal history of cervical dysplasia; Z79.82 Long term (current) use of aspirin; Z90.49 Acquired absence of other specified parts of digestive tract; Z87.19 Personal history of other diseases of the digestive system
CPT/HCPCS: 36430; 74018; 85025; 85384; 85610; 85730; 86850; 86900; 86901; 86920